=== PATIENT | female | born 1980 | race Caucasian/White ===

== ENCOUNTER 2018-05-29 06:00 | Inpatient (IN) | payer BC ==
[2018-05-29] MEDS ORDERED: Ibuprofen 800 MG TAB PO PRN (07:47)
[2018-05-29] MEDS ORDERED: Ondansetron HCl/PF 4 MG/2 ML Vial IVP PRN ×3 (07:47→17:23)
[2018-05-29] MEDS ORDERED: Acetaminophen/Codeine 30-300mg Tablet PO PRN ×2 (07:47→17:23)
[2018-05-29] MEDS ORDERED: Lidocaine 1% (PF) 30 ML VIAL SC PRN (07:47)
[2018-05-29] MEDS ORDERED: Butorphanol Tartrate 1 MG/ML VIAL SLOW IVP PRN (07:47)
[2018-05-29] MEDS ORDERED: Promethazine HCl 25 MG/ML VIAL IM PRN ×2 (07:47→12:20)
[2018-05-29] MEDS ORDERED: NS w/ Oxytocin 10 units 500 ML IV SCH ×2 (07:47)
[2018-05-29] MEDS ORDERED: HYDROcodone/Acetaminophen 5/325 mg Tablet PO PRN ×2 (07:47→17:23)
[2018-05-29] MEDS ORDERED: Acetaminophen 500 MG TAB PO PRN (07:47)
[2018-05-29] MEDS ORDERED: Misoprostol 200 MCG TAB PR PRN (07:47)
[2018-05-29] MEDS ORDERED: NS / Oxytocin 40 units/1000ml 1,000 ML IV PRN (07:47)
[2018-05-29] MEDS: Lactated Ringer's 1,000 ML IV SCH ×2 (08:00→11:41)
[2018-05-29 08:23] VITALS: BMI 29.0
[2018-05-29 08:31] LABS: Hemoglobin 12.4 g/dL (12.0-16.0); Mean Corpuscular HGB CONC 33.8 g/dL (32.0-36.0); Mean Corpuscular Hemoglobin 33.1 pg (27.0-31.0); Mean Corpuscular Volume 97.9 fL (78.0-98.0); Mean Platelet Volume 7.5 fL (7.4-10.4); Platelet Count 173 thou/uL (130-400); RBC Distribution Width 12.7 % (11.5-14.5); Red Blood Cell (RBC) Count 3.75 mill/uL (4.20-5.40); White Blood Cell (WBC) Count 7.3 thou/uL (4.8-10.8)
[2018-05-29 09:03] LABS: HBSAg Index 0.19 S/CO (0-0.99); Hep B Surf Ag Non-Reactive S/CO (NonReactive)
[2018-05-29 09:04] LABS: Syphilis Antibody Nonreactive (Nonreactive); Syphilis Antibody Index 0.04 S/CO (<1.00 Non-Reactive)
[2018-05-29] MEDS ORDERED: Bupivacaine 0.5% 20 ML, fentaNYL Citrate/PF 400 MCG in Sodium Chloride 0.9% 72 ML EPIDURAL SCH (10:00)
[2018-05-29] MEDS ORDERED: DISCONTINUE ALL PREVIOUS NARCOTICS FS SCH (10:00)
[2018-05-29] MEDS ORDERED: Bupivacaine 0.5% 10 ML VIAL ONE (11:55)
[2018-05-29] MEDS ORDERED: Fentanyl 100 MCG/2 ML VIAL ONE (11:55)
[2018-05-29] MEDS ORDERED: ePHEDrine/0.9% NaCl/PF SYRINGE 50 mg/10 ml SLOW IVP PRN (12:20)
[2018-05-29] MEDS ORDERED: Lactated Ringer's 500 ML IV PRN (12:20)
[2018-05-29] MEDS ORDERED: Eucerin (Mineral Oil/Petrolatum,White) 30 gm Jar TOP PRN (12:20)
[2018-05-29] MEDS ORDERED: Naloxone HCl 0.4 mg/ml Vial IVP PRN ×2 (12:20)
[2018-05-29] MEDS ORDERED: Fentanyl 100 MCG/2 ML VIAL I-THECAL ONE (12:20)
[2018-05-29] MEDS ORDERED: Acetaminophen 325 MG TAB PO PRN (12:20)
[2018-05-29] MEDS ORDERED: Bupivacaine 0.25% 10 ML VIAL EPIDURAL ONE (12:20)
[2018-05-29] MEDS ORDERED: diphenhydrAMINE 50 MG/ML VIAL IVP PRN (12:20)
[2018-05-29] MEDS ORDERED: fentaNYL Citrate/PF 400 MCG, Bupivacaine 0.5% 20 ML in Sodium Chloride 0.9% 72 ML EPIDURAL SCH (12:30)
[2018-05-29] MEDS ORDERED: Communication Order-Pharmacy FS SCH (12:30)
[2018-05-29] MEDS ORDERED: NS / Oxytocin 40 units/1000ml 1,000 ML ONE (15:08)
[2018-05-29] MEDS ORDERED: Lanolin Ointment 7 GM TUBE TOP PRN (17:23)
[2018-05-29] MEDS ORDERED: NS / Oxytocin 40 units/1000ml 1,000 ML IV SCH (17:23)
[2018-05-29] MEDS ORDERED: Benzocaine/Menthol 20-0.5% 60 ML CAN TOP PRN (17:23)
[2018-05-29] MEDS ORDERED: Bisacodyl 10 MG SUPP PR PRN (17:23)
[2018-05-29] MEDS ORDERED: Milk Of Magnesia 30 ML UDCUP PO PRN (17:23)
[2018-05-29] MEDS: Ibuprofen 800 MG TAB PO SCH (21:43)
[2018-05-29] MEDS: Docusate Calcium (SURFAK) 240 MG CAP PO SCH (21:43)
[2018-05-30] MEDS: Ibuprofen 800 MG TAB PO SCH ×3 (05:51→22:55)
[2018-05-30] MEDS: Prenatal Vitamin 1 TAB PO SCH (09:18)
[2018-05-30] MEDS: Docusate Calcium (SURFAK) 240 MG CAP PO SCH ×2 (09:18→22:54)
[2018-05-30] MEDS: Ferrous Sulfate 325 MG TAB PO SCH ×2 (14:37→17:31)
[2018-05-31] MEDS: Ibuprofen 800 MG TAB PO SCH (06:38)
[2018-05-31 08:12] VITALS: BP 110/72; TEMP 97.8
[2018-05-31] MEDS: Ferrous Sulfate 325 MG TAB PO SCH (08:47)
[2018-05-31] MEDS: Docusate Calcium (SURFAK) 240 MG CAP PO SCH (09:19)
[2018-05-31] MEDS: Prenatal Vitamin 1 TAB PO SCH (09:19)
== END 2018-05-31 10:50 | disposition home or self-care (01) | DRG 775 ==
LOC: L&D 07:32 → 3SW 20:26
PROVIDERS: ADMIT Family Medicine; ATTEND Family Medicine
PROC: 10E0XZZ Delivery of Products of Conception, External Approach (ICD-10-PCS; principal; 2018-05-29)
PROC: 4A0HXCZ Measurement of Products of Conception, Cardiac Rate, External Approach (ICD-10-PCS; 2018-05-29)
PROC: 0HQ9XZZ Repair Perineum Skin, External Approach (ICD-10-PCS; 2018-05-29)
PROC: 3E033VJ Introduction of Other Hormone into Peripheral Vein, Percutaneous Approach (ICD-10-PCS; 2018-05-29)
DX: O36.63X0 Maternal care for excessive fetal growth, third trimester, not applicable or unspecified (principal); O70.0 First degree perineal laceration during delivery; Z3A.39 39 weeks gestation of pregnancy; Z37.0 Single live birth; I48.91 Unspecified atrial fibrillation; O99.89 Other specified diseases and conditions complicating pregnancy, childbirth and the puerperium
CPT/HCPCS: 36415; 51702; 85027; 85461; 86780; 86850; 86870; 86900; 86901; 87340; 90384; 96372; J2001; J3010; J3490; J7050